=== PATIENT | male | born 1990 | race Caucasian/White ===

== ENCOUNTER 2024-07-14 10:03 | Emergency (ER) | payer OTHER, SELFPAY ==
--- NOTE | ~2024-07-14 | CT_ITS ---
EXAMINATION: CT ABDOMEN AND PELVIS WITHOUT CONTRAST CLINICAL INFORMATION: Lower abd discomfort and hernia bulge COMPARISON: None available. TECHNIQUE: Multidetector volumetric imaging was performed from the superior aspect of the liver through the pubic symphysis. Sagittal and coronal reformatted images were obtained on the technologist's workstation. This CT examination was performed using dose optimization techniques as appropriate, variously including the following: *Automated exposure control *Adjustment of mA and/or kV according to patient size (this includes techniques or standardized protocols for targeted exams where dose is matched to indication/reason for exam; i.e. extremities or head) *Use of iterative reconstruction technique DLP: 339 mGy-cm FINDINGS: LUNG BASES: The visualized lung bases are unremarkable. LIVER, GALLBLADDER, AND BILIARY TREE: The liver is normal in size, shape, and attenuation. No focal hepatic lesion or biliary ductal dilatation is present. The gallbladder is unremarkable with no evidence of radiopaque gallstones, gallbladder wall thickening, or obvious pericholecystic inflammatory changes. PANCREAS: Unremarkable. SPLEEN: Unremarkable. ADRENAL GLANDS: Unremarkable. KIDNEYS AND URETERS: There is a 1.0cm right lower pole layering calcification in the lower pole calyx. The kidneys are normal in size, shape, and attenuation. No hydronephrosis, hydroureter. No perinephric stranding. BLADDER: Unremarkable. GASTROINTESTINAL TRACT: The small and large bowel are unremarkable. The appendix is unremarkable. ABDOMINAL WALL: No significant hernia is appreciated. LYMPH NODES: Normal. VASCULAR: Unremarkable. PELVIC VISCERA: Unremarkable. OSSEOUS STRUCTURES: Unremarkable. CT/CT abdomen pelvis wo IV con IMPRESSION: 1. No significant hernia is appreciated. 2. 1.0 cm right lower pole layering calcification in the lower pole calyx. Fleischner guidelines were followed. Electronically signed by: Shanta Whitehead MD 07/14/2024 01:56 PM EDT
[2024-07-14 10:19] VITALS: BP 141/75; PULSE 66; RESP 16; TEMP 36.9; O2SAT 100; BMI 21.0
--- NOTE | 2024-07-14 13:57 | ED_ITS ---
HPI - General Adult General Chief complaint: General Medical Stated complaint: pelvis pain Time Seen by Provider: 07/14/24 13:36 Source: patient Mode of arrival: ambulatory Limitations: no limitations History of Present Illness ED Provider: Yaya CEVALLOS HPI narrative: This is a 34-year-old male presenting with concerns that he feels a small bulge on his suprapubic region/inguinal region intermittently particularly when he is working out. He reports he feels the bulge she pushes it in and it goes back in. It is not associated pain. No abdominal pain, nausea, vomiting, fevers, chills, headache, vision changes, dizziness, weakness, chest pain or shortness of breath. Related Data Allergies Allergy/AdvReac Type Severity Reaction Status Date / Time No Known Allergies Allergy Unverified 07/14/24 10:21 Review of Systems Review of Systems: Yes all other systems are reviewed and are negative [facility] Past Medical History Attestation statement: The following information was validated with the patient. Source: old records reviewed and nursing notes reviewed Social History Social History Advance Directives: No Advance Directives Information Provided: Yes Do you have a plan to hurt others: No Plan Physical Exam ED Vital Signs: Vital Signs - 24 hr 07/14/24 10:19 Temperature 98.5 F Pulse Rate 66 Respiratory Rate 16 Blood Pressure 141/75 H Pulse Oximetry 100 Oxygen Delivery Method Room Air BMI result Body Mass Index 21.0 Vital signs stable Appearance: Alert.? Oriented X3.? No acute distress.? Head: Normocephalic, atraumatic, no step-offs or deformities Eyes: Pupils equal, round and reactive to light. Neck: Normal inspection.? Neck supple.? CVS: Normal heart rate and rhythm.? Pulses normal.? Respiratory: No respiratory distress.? Breath sounds normal.? Abdomen: Soft and nontender.? small indirect inguinal hernia palpated and easily reduced at the bedside. No pain Skin: Skin warm and dry.? Normal skin color.? Normal skin turgor.? Extremities: No lower extremity edema.? No calf ttp. 5/5 strength to bilateral upper and lower extremities Neuro: Oriented X 3.? No motor deficit.? No sensory deficit. CN 2-12 intact Course Reevaluation(s) Reevaluation #1: Patient will be discharged with general surgery follow-up. Educated patient on diagnosis and treatment plan, answered all question, patient verbalizes un derstanding. At this time patient will be discharged home, advised to return with new or worsening symptoms. Educated on worrisome signs and symptoms and when to return. At this time I feel comfortable discharge home. Time: 14:31 Medical Decision Making Medical Decision Making MDM Narrative: 34-year-old male presents with concerns that he may have hernia felt a small lump in his lower abdomen reports he pushes it in intermittently. Physical exam significant for small indirect inguinal hernia palpated and easily reduced at the bedside. No pain History and physical exam concerning for reducible hernia. Unlikely ischemic bowel, incarcerated hernia. No signs of acute abdomen, appendicitis, cholecystitis, diverticulitis, pancreatitis Plan- imaging Differential Diagnosis Differential Diagnoses: The differential diagnosis associated with the presentation includes History and physical exam concerning for reducible hernia. Unlikely ischemic bowel, incarcerated hernia. No signs of acute abdomen, appendicitis, cholecystitis, diverticulitis, pancreatitis Admission/Observation Consideration of admission/observation: Escalation of care including admission/observation considered Independent Interpretation I performed an independent interpretation of an: CT Scan (CT/CT abdomen pelvis wo IV con IMPRESSION: 1. No significant hernia is appreciated. 2. 1.0 cm right lower pole layering calcification in the lower pole calyx. Fleischner guidelines were followed.) Radiology Impression Discussion of test interpretation with radiology: I have reviewed the radiologist's reading. Discharge Plan Discharge Clinical Impression: Inguinal hernia Patient Disposition: Home, Self-Care Instructions: Inguinal Hernia (ED) Additional Instructions: Take your medications as prescribed. If you were prescribed antibiotics today, it is important that you take your medication to their entirety, do not skip any doses, do not finish them early. Follow-up with your primary care provider this week. Return to the emergency department with new or worsening symptoms. Such as fevers, chills, chest pain, shortness of breath, nausea, vomiting, dizziness, headache, vision changes, lethargy In case of emergency call 911 Follow-up with general surgery if it continues to bother you CT/CT abdomen pelvis wo IV con IMPRESSION: 1. No significant hernia is appreciated. 2. 1.0 cm right lower pole layering calcification in the lower pole calyx. Fleischner guidelines were followed. [place] [facility] [place]Provider Group] - 2 days Physician,None [Primary Care Provider] - 2 days Stand Alone Forms: Work/School Release Print Language: Andorran
[2024-07-14 14:33] VITALS: BP 126/68; PULSE 68; RESP 16; TEMP 37.2; O2SAT 96
[2024-07-14 14:51] VITALS: BP 126/68; PULSE 68; RESP 16; TEMP 37.2; O2SAT 96
== END 2024-07-14 14:52 | disposition home or self-care (01) ==
PROVIDERS: Emergency Provider Emergency Medicine
DX: K40.90 Unilateral inguinal hernia, without obstruction or gangrene, not specified as recurrent (principal); R10.2 Pelvic and perineal pain
CPT/HCPCS: 74176; 99283; 99284

== ENCOUNTER 2024-07-20 07:50 | Outpatient (AMB) | payer OTHER, SELFPAY ==
--- NOTE | 2024-07-20 07:59 | MHC.OFFVIS ---
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 He has had a 3 to four-month history of left groin swelling and discomfort. He is very active and does extensive workouts and he thinks that is what precipitated his left inguinal hernia. Patient otherwise tolerating a diet, has regular bowel habits. He has no other GI issues or complaints. Chart was reviewed and patient evaluated [facility] Family History (Updated 07/20/24 @ 08:04 by Alma Delia Flanagan) Mother Breast CA HTN (hypertension) Social History (Updated 07/20/24 @ 08:00 by Alma Delia Flanagan) Household Members: Family Alcohol intake: never Use of substances other than those prescribed or required for medical reasons: Yes Substance Use Type: Marijuana Physical Exam Vital Signs: Last Vital Signs Pulse 61 07/20/24 08:04 BP 141/74 H 07/20/24 08:04 BMI result Body Mass Index 21.1 Const Other: Well-developed male. Chest Other: Chest breath sounds bilaterally, HS 1 in 2 GI Other: Patient was examined both supine and standing with Valsalva. Abdomen is soft, scaphoid, benign. Right groin negative. Genitalia within normal limits. Very large reducible left inguinal hernia. Assessment & Plan Assessment & Plan (1) Left inguinal hernia: Code(s): K40.90 - Unilateral inguinal hernia, without obstruction or gangrene, not specified as recurrent Category: Surgical Plan As noted above, patient would like to have this repaired. Risks, benefits, alternatives of open left inguinal hernia repair with mesh were reviewed the patient and included but not limited to bleeding, infection, recurrence, numbness, pain, scarring the patient wished to proceed. All questions answered. Arrangements will be made for this. Coding Level of Care Code New Pt Level 5 (36239) Diagnoses Left inguinal hernia K40.90
[2024-07-20 08:04] VITALS: BP 141/74; PULSE 61; BMI 21.1
== END 2024-07-20 08:16 | disposition home or self-care (01) ==
PROVIDERS: PCP Internal Medicine; Visit Provider Surgery
DX: K40.90 Unilateral inguinal hernia, without obstruction or gangrene, not specified as recurrent (principal)
CPT/HCPCS: 99204

== ENCOUNTER → 2024-07-20 07:50 | Outpatient (BNVA) | payer OTHER, SELFPAY | PROVIDERS: PCP Internal Medicine; Visit Provider Surgery ==

== ENCOUNTER 2024-08-01 08:10 | Outpatient (REF) | payer OTHER, SELFPAY ==
[2024-08-01 10:13] LABS: Hematocrit 38.9 % (42.0-52.0); Mean Corpuscular HGB Conc 33.4 g/dl (31.0-36.0); Mean Corpuscular Hemoglobin 26.9 pg (27.0-33.0); Mean Corpuscular Volume 80.4 fL (80.0-98.0); Mean Platelet Volume 10.1 fL (9.4-12.4); Platelet Count 249 X10*3/uL (160-400); Red Blood Count 4.84 X10*6/uL (4.60-5.80); Red Cell Distribution Width 13.6 % (11.0-16.0); White Blood Count 11.8 X10*3/uL (4.8-10.8)
[2024-08-01 11:00] LABS: Alanine Aminotransferase 21 U/L (0-40); Albumin Level 4.7 g/dL (3.5-5.0); Alkaline Phosphatase 62 U/L (39-117); Anion Gap 11 (12-20); Aspartate Amino Transferase 18 U/L (5-37); Bilirubin Direct < 0.2 mg/dL (0.0-0.5); Bilirubin Total 0.2 mg/dL (0.0-1.0); Blood Urea Nitrogen 9 mg/dL (9-16); Calcium 9.7 mg/dL (8.4-10.2); Carbon Dioxide 27 mmol/L (22-29); Chloride 107 mmol/L (96-108); Cholesterol 154 mg/dL (<200); Estimated Glomerular Filt Rate > 60; Glucose Random 108 mg/dL (60-115); HDL Cholesterol 40 mg/dL (>40); LDL Cholesterol Calculated 104 mg/dL (<100); Potassium 3.9 mmol/L (3.3-5.1); Sodium 141 mmol/L (135-145); Total Protein 7.7 g/dL (6.5-8.0); Triglycerides 51 mg/dL (<150)
[2024-08-01 11:06] LABS: Appearance Urine Clear; Color Urine Yellow; Glucose Urine UA Negative (Negative); Leukocyte Esterase Urine Negative (Negative); Nitrite Urine Negative (Negative); PH 6.5 (5.0-9.0); Specific Gravity - Urine 1.015 (1.005-1.025); Urine Blood Negative (Negative); Urine Ketones Negative (Negative); Urine Protein Negative (Neg-Trace)
[2024-08-01 11:22] LABS: Thyroid Stimulating Hormone 0.55 uIU/mL (0.32-4.0)
== END 2024-08-01 08:11 | disposition home or self-care (01) ==
LOC: HO.LAB 08:10
PROVIDERS: PCP Internal Medicine; Visit Provider Internal Medicine
DX: E78.00 Pure hypercholesterolemia, unspecified (principal); K40.90 Unilateral inguinal hernia, without obstruction or gangrene, not specified as recurrent; F12.90 Cannabis use, unspecified, uncomplicated
CPT/HCPCS: 36415; 80048; 80061; 80076; 81003; 84443; 85027; 96127; 99202

== ENCOUNTER 2024-08-01 08:10 | Outpatient (AMB) | payer OTHER, SELFPAY ==
--- NOTE | 2024-08-01 08:30 | A.OFFPC_ITS ---
Vital Signs 08/01/24 08:32 Height 5 ft 7.5 in Weight 134 lb 4 oz BMI 20.7 BP 120/66 Blood Pressure Location Lt brachial Position Sitting Pulse 85 Pulse Source Pulse Oximeter Pulse Oximetry (%) 99 Oxygen Delivery Method Room Air Intake Visit Reasons: Establish care- Hernia Repair on 08/16 Intake Note: Patient is a new patient here to establish care for Hernia. Transferring care from unknown. Medical records have not been requested and have not received. Pt has an up coming surgery on 08/12 with ([facility] [place] short stay). Resource Management Planner Required: No Floor Covering Layer: Not Required per policy Accompanied by: Self / Same As Patient Allergies No Known Allergies Allergy (Verified 08/01/24 09:03) Medication List - Last Reconciled 08/01/24 by Jaren Estrella MD No Known Home Meds Tobacco use date assessed: 08/01/24 Dental Screening Dental Screen Date: 08/01/24 Did you have a dental visit in the last 12 months?: Yes Did you have a dental problem in the last 6 months where you did not have access to dental care?: No Was dental information given to patient?: Patient has dentist HPI Establish care- Hernia Repair on 08/16 HPI Details 34-year-old male presents to the office to establish his care. Patient was recently seen in the emergency room for a lump in his lower abdomen. He was diagnosed to have inguinal hernia. A CT scan of the abdomen was unremarkable. Patient has seen a general surgeon and surgery has been scheduled for August 12. Patient otherwise is in good health. Currently not on any medications. No significant past medical history. He has not been working for a year. Patient smokes marijuana regularly. Denies any tobacco or alcohol use. He lives with his fiancee and daughter. [facility] Medical History Cannabis use disorder Surgical History Left inguinal hernia No pertinent past surgical history Family History Mother Breast CA HTN (hypertension) Social History Household Members: Family Housing: House Alcohol intake: never Patient Tobacco Use Status: Never used Tobacco e-Cigarette/Vaping Use: Never Used Second Hand Smoke Exposure: No Substance Use Type: Marijuana Substance Use Frequency: Daily service: No Current occupational status: unemployed Cognitive needs: No Hearing needs: No Vision needs: Yes (Contact lens) Questionnaire PHQ-9 Over the last 2 weeks, how often have you been bothered by any of the following problems? 1. Little interest or pleasure in doing things: not at all 2. Feeling down, depressed, or hopeless: not at all 3. Trouble falling or staying asleep, or sleeping too much: not at all 4. Feeling tired or having little energy: not at all 5. Poor appetite or overeating: not at all 6. Feeling bad about yourself - or that you are a failure or have let yourself or your family down: not at all 7. Trouble concentrating on things, such as reading the newspaper or watching television: not at all 8. Moving or speaking so slowly that other people could have noticed. Or the opposite - being so fidgety or restless that you have been moving around a lot more than usual: not at all 9. Thoughts that you would be better off or of hurting yourself in some way: not at all Total score: 0 Depression Screening Interpretation: Negative Depression Screening Done: Yes Source: Developed by Drs. Ulises Hughes, Marianna Patiño, Ramakrishna Cisneros and colleagues, with an educational vida from [employer]. Thrive Questionnaire Date Thrive assessed: 07/31/24 I am a: Patient What is your living situation today?: I choose not to answer this question Within the past 12 months, did the food you bought not last and you didn't have the money to get more?: I choose not to answer this question Within the past 12 months, did you worry whether your food would run out before you got money to buy more?: I choose not to answer this question Do you have trouble paying for medicines?: I choose not to answer this question Do you have trouble getting transportation to medical appointments?: No Do you have trouble paying your heating and electricity bill?: I choose not to answer this question Do you have trouble taking care of your child, family member or friend?: No Do you have trouble with day-to-day activities such as bathing, preparing meals, shopping, managing finances, etc.?: No Are you currently unemployed and looking for a job?: I choose not to answer this question Are you interested in more education?: No Please select the resources that you would like help with: None Currently or been in a relationship where the following occur: I choose not to answer THRIVE Score: 0 AUDIT C Alcohol Use Questionnaire (AUDIT-C) 1. How often do you have a drink containing alcohol?: Never 2. How many drinks containing alcohol do you have on a typical day when you are drinking?: 1 or 2 3. How often do you have six or more drinks on one occasion?: Never Total Score: 0 LUISANA-7 AMB Questionnaire LUISANA-7 Date LUISANA - 7 assessed: 08/01/24 Feeling nervous, anxious, or on edge: 0 = Not at all Not being able to stop or control worryin = Not at all Worrying too much about different things: 0 = Not at all Trouble relaxin = Not at all Being so restless that it is hard to sit still: 0 = Not at all Becoming easily annoyed or irritable: 0 = Not at all Feeling afraid as if something awful might happen: 0 = Not at all Total LUISANA-7 score (0-4 normal; 5-9 mild; 10-14 moderate; 15-21 severe): 0 Source: Developed by Drs. Ulises Hughes, Marianna Patiño, Ramakrishna Cisneros and colleagues, with an educational vida from [employer]. Physical exam (Primary Care) Vital Signs: Last Vital Signs Pulse 85 08/01/24 08:32 BP 120/66 08/01/24 08:32 Pulse Ox 99 08/01/24 08:32 Oxygen Delivery Method Room Air 08/01/24 08:32 Care Plan Goal for BP management: Blood pressure is in range. BMI result Body Mass Index 20.7 Tobacco/Smoking Status: Tobacco use Status Tobacco use date assessed 08/01/24 08/01/24 08:42 Patient Tobacco Use Status Never used Tobacco 08/01/24 08:42 e-Cigarette/Vaping Use Never Used 08/01/24 08:42 PHQ-9: PHQ-9 Score PHQ-9: Total score 0 08/01/24 08:42 Depression Screening Interpretation: Negative Thrive Assessment: Date of Thrive Assessment Date Thrive assessed 07/31/24 08/01/24 08:42 Currently or been in a relationship where the following occur: I choose not to answer Const General: cooperative and healthy appearing Nutritional Appearance: well nourished Orientation/consciousness: patient oriented x3 Limitations: no limitations HENMT Head: Yes normal to inspection Eyes General: appearance normal, both eyes and all related structures Neck Neck: Yes normal visual inspection Chest Chest palpation & inspection: normal palpation of entire chest wall Resp Effort & Inspection: normal respiratory effort Neuro General: patient oriented x3 Assessment and Plan Assessment & Plan (1) Borderline hypercholesterolemia: Code(s): E78.00 - Pure hypercholesterolemia, unspecified Plan: Blood work has been ordered will call with the results. (2) Left inguinal hernia: Code(s): K40.90 - Unilateral inguinal hernia, without obstruction or gangrene, not specified as recurrent Plan: Patient, independently has made his own arrangements to get surgery done. (3) Cannabis use disorder: Code(s): F12.90 - Cannabis use, unspecified, uncomplicated Plan: Patient is not interested at this time to discuss cessation. Orders: Orders Complete Blood Count no Diff Today E78.00 - Pure hypercholesterolemia, unspecified Basic Metabolic Panel Today E78.00 - Pure hypercholesterolemia, unspecified Lipid Panel Today E78.00 - Pure hypercholesterolemia, unspecified Thyroid Stimulating Hormone Today E78.00 - Pure hypercholesterolemia, unspecified Liver Panel Today E78.00 - Pure hypercholesterolemia, unspecified UA and rflx microscopic Today E78.00 - Pure hypercholesterolemia, unspecified Coding Level of Care Code New Pt Level 4 (78347) Diagnoses Borderline hypercholesterolemia E78.00 Left inguinal hernia K40.90 Cannabis use disorder F12.90
[2024-08-01 08:32] VITALS: BP 120/66; PULSE 85; O2SAT 99; BMI 20.7
== END 2024-08-01 08:53 | disposition home or self-care (01) ==
PROVIDERS: Visit Provider Internal Medicine
DX: E78.00 Pure hypercholesterolemia, unspecified (principal); K40.90 Unilateral inguinal hernia, without obstruction or gangrene, not specified as recurrent; F12.90 Cannabis use, unspecified, uncomplicated

== ENCOUNTER 2024-08-12 10:40 | Day surgery (SDC) | payer OTHER, SELFPAY ==
[2024-08-10 09:42] VITALS: BMI 21.1
--- NOTE | 2024-08-11 11:10 | MHC.SHP ---
Pre-Procedural Eval Section A - 24 Hr Update-Section A only Date of Service: 08/12/24 The patient is an INPATIENT: No Changes since office visit: No Cold of Flu in the past 2 weeks, No New Medical Problems, No Changes in Medication and No Patient answered all questions Section B - Complete if H&P > 30 days Chief Complaint: Unilateral inguinal hernia, without obstruction or Allergies: Allergies Allergy/AdvReac Type Severity Reaction Status Date / Time No Known Allergies Allergy Verified 08/01/24 09:03 Review of Systems Sugical H&P ROS: Negative: Constitution, Cardiovascular, Respiratory, Neurological, Psychiatric, Hem-Onc, Allergic/Immunologic, Gastrointestinal, Genitourinary, Musculoskeletal, Integumentary, Endocrine and Eyes/Ears/Nose/Throat Exam Surgical H&P Exam: Normal: HEENT, Normal: Heart, Normal: Lungs, Normal: Extremities, Normal: Abdomen, Normal: Skin and Normal: Neurological Plan I have reviewed the history and physical and performed a pertinent physical examination on my patient. No changes have occurred unless specified. Time Spent With Patient Time: Total time managing care of this patient today ____ minutes.
[2024-08-12] VITALS (7 sets, daily range): BP systolic 90–143; BP diastolic 40–85; PULSE 73–100; RESP 16–21; TEMP 36.6–37.2; O2SAT 96–99
[2024-08-12] MEDS: Lactated Ringers 1,000 ML 100 ML IVCONT (11:05)
--- NOTE | 2024-08-12 12:00 | P.CONAN_ITS ---
Documented by User: Amber Mcmanus NP 08/10/24 14:37 HPI - Anesthesia Eval Consult details Narrative: 34yo M for Left Hernia Inguinal Reducible PMFSH Active Problems Active Problems: All Active Problems Cannabis use disorder (Acute) Left inguinal hernia (Acute) Past Medical History Medical History Cannabis use disorder Family History Family History Mother Breast CA HTN (hypertension) Surgical History Surgical History Left inguinal hernia No pertinent past surgical history Social History Social History Household Members: Family Housing: House Alcohol intake: never Patient Tobacco Use Status: Never used Tobacco e-Cigarette/Vaping Use: Never Used Second Hand Smoke Exposure: No Use of substances other than those prescribed or required for medical reasons: Yes Substance Use Type: Marijuana Substance Use Type Other:: Smoking Substance Use Frequency: Daily Have you been hit, kicked, punched, or otherwise hurt by someone within the past year? If so, by whom?: No Are you DNR?: No Advance Directives: No Advance Directives Information Provided: Yes Recently lost weight without trying: No Nutrition Risks: No Nutritional Risk service: No Current occupational status: unemployed Cognitive needs: No Hearing needs: No Vision needs: Yes (Contact lens) Meds Allergies Allergy/AdvReac Type Severity Reaction Status Date / Time No Known Allergies Allergy Verified 08/01/24 09:03 Exam Height,Weight and Vital Signs: Height 5 ft 7 in Weight 61.235 kg Pertinent Lab Results Pertinent Lab Results: Laboratory Tests 08/01/24 09:37 WBC 11.8 H Hgb 13.0 L Hct 38.9 L Plt Count 249 Sodium 141 Potassium 3.9 Chloride 107 Carbon Dioxide 27 BUN 9 Creatinine 0.76 Assessment and Plan Assessment Anesthesia Assessment: Chart Reviewed Documented by User: Florence Ruiz DO 08/12/24 12:14 HPI - Anesthesia Eval Consult details Narrative: 34yo M for Left Hernia Inguinal Reducible. Smokes marijuana daily. [facility] Past Medical History Medical History Cannabis use disorder Family History Family History Mother Breast CA HTN (hypertension) Family history of problems with anesthesia: No Surgical History Surgical History Left inguinal hernia No pertinent past surgical history History of Problems with Anesthesia: No Social History Social History Household Members: Family Housing: House Alcohol intake: never Patient Tobacco Use Status: Never used Tobacco e-Cigarette/Vaping Use: Never Used Second Hand Smoke Exposure: No Use of substances other than those prescribed or required for medical reasons: Yes Substance Use Type: Marijuana Substance Use Type Other:: Smoking Substance Use Frequency: Daily Have you been hit, kicked, punched, or otherwise hurt by someone within the past year? If so, by whom?: No Are you DNR?: No Advance Directives: No Advance Directives Information Provided: Yes Recently lost weight without trying: No Nutrition Risks: No Nutritional Risk service: No Current occupational status: unemployed Cognitive needs: No Hearing needs: No Vision needs: Yes (Contact lens) Meds Allergies Allergy/AdvReac Type Severity Reaction Status Date / Time No Known Allergies Allergy Verified 08/01/24 09:03 Exam Exam Date and Time: 08/12/24 1200 Height,Weight and Vital Signs: Height 5 ft 7 in Weight 61.235 kg Vital Signs Temperature 97.8 F 08/12/24 11:04 Pulse Rate 77 08/12/24 11:04 Respiratory Rate 16 08/12/24 11:04 Blood Pressure 143/79 H 08/12/24 11:04 Pulse Oximetry 99 08/12/24 11:04 Oxygen Delivery Method Room Air 08/12/24 11:04 Temperature 97.8 F 08/12/24 11:04 Pulse Rate 77 08/12/24 11:04 Respiratory Rate 16 08/12/24 11:04 Blood Pressure 143/79 H 08/12/24 11:04 Pulse Oximetry 99 08/12/24 11:04 Oxygen Delivery Method Room Air 08/12/24 11:04 Airway Mallampati Class: I TM Dist: >3cm Neck ROM: Full Loose/Missing/Broken Teeth: Yes (broken molar right upper jaw) Heart: S1S2 Lungs: CTAB Assessment and Plan Assessment Anesthesia Assessment: Anesthesia Plan Discussed and Chart Reviewed Final Anesthetic Review Family History of Problems with Anesthesia: No History of Problems with Anesthesia: No NPO: Yes ASA Class: II Final Preanesthetic Review: No Changes in Pt Med Stat, Meds/Allgs Chart Reviewed, Consent Obtained/Reviewed and Anes Risks/Benef Reviewed Patient Risk: Low Procedure Risk: Low Anesthetic Plan Anesthetic Plan: MAC: and Agree w/ Assess. and Plan Disposition: Standard PACU
--- NOTE | 2024-08-12 13:48 | P.OP_ITS ---
Operative Note Operative Note Date of Service: 08/12/24 Narrative: Preoperative diagnosis: [] Symptomatic left inguinal hernia Postop diagnosis: [] The same Procedure [] open left inguinal herniorrhaphy with Bard mesh Surgeon: [] [employer] Information Clerk: [] Flores Type of Anesthesia: [] MAC Indication for surgery: [] Very large indirect left inguinal hernia. No direct hernia demonstrated. Findings: [] Patient was brought to the operating room, placed on operative table in supine position, after an adequate level of MAC anesthesia was induced, the left groin was prepped and draped in usual sterile fashion. Using a very small left para inguinal incision, this carried down through skin, subcutaneous tissue, Roma's fascia. External oblique fibers were opened their direction with care to isolate and preserve the ilioinguinal nerve throughout the procedure. Spermatic cord was identified and retracted from the field. As noted above no direct hernia was demonstrated. A very large indirect hernia sac was identified, from the cord, and reduced. A Bard plug was placed in the indirect defect and sutured inferiorly to the inguinal ligament, and superiorly to the transversalis fascia using interrupted 0 Ethibond suture. Grasped also covered the entire inguinal floor. Wound was irrigated, secured hemostasis, and closed in the following manner; external oblique fibers were closed using running 2-0 Vicryl suture. Roma's fascia was reapproximated using interrupted 3-0 Vicryl suture. Interrupted inverted deep dermal 3-0 Vicryl sutures followed by running subcuticular 4-0 Vicryl sutures were placed. Steri-Strips and sterile dressings were applied. Wound was infiltrated at the beginning at the end with 0.5% Marcaine/1% lidocaine in the wound directly and through ilioinguinal block. Sponge, needle, and instrument counts were reported correct. Patient tolerated the procedure well and emerged from anesthesia stable condition. Ipsilateral testicle was intrascrotal at completion.
== END 2024-08-12 15:21 | disposition home or self-care (01) ==
PROVIDERS: Visit Provider Surgery
PROC: (CPT 49505; principal; 2024-08-12 13:10)
DX: K40.90 Unilateral inguinal hernia, without obstruction or gangrene, not specified as recurrent (principal)
CPT/HCPCS: 49505; C1781; J0690; J1596; J1885; J2003; J2250; J2704; J2795; J3010

== ENCOUNTER → 2024-08-12 10:40 | Outpatient (BNV) | payer OTHER, SELFPAY | PROVIDERS: Visit Provider Surgery | DX: K40.90 Unilateral inguinal hernia, without obstruction or gangrene, not specified as recurrent (principal) | CPT/HCPCS: 49505 ==

== ENCOUNTER 2024-08-23 13:20 | Outpatient (AMB) | payer OTHER, SELFPAY ==
--- NOTE | 2024-08-23 13:25 | A.OFFVIS_ITS ---
Intake Visit Reasons: S/P LIH w/mesh Intake Note: Patient here s/p left inguinal hernia on 08-12-2024. Reports incisions healing well. Patient c/o: no longer taking rx pain meds. 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 He is tolerating a diet. Having regular bowel habits. He has minimal incisional discomfort. He is increasing his activity level. FOR[facility]LY [facility], [facility] Medical History Cannabis use disorder Surgical History (Updated 08/23/24 @ 13:34 by Remy Dent MD) Left inguinal hernia (08/12/24) No pertinent past surgical history Family History Mother Breast CA HTN (hypertension) Social History Household Members: Family Housing: House Alcohol intake: never Patient Tobacco Use Status: Never used Tobacco e-Cigarette/Vaping Use: Never Used Second Hand Smoke Exposure: No Substance Use Type: Marijuana service: No Current occupational status: unemployed Cognitive needs: No Hearing needs: No Vision needs: Yes (Contact lens) Physical Exam GI Other: Abdomen is soft. Incision clean dry and intact healing very well Assessment & Plan Assessment & Plan (1) Status post inguinal hernia repair: Code(s): Z98.890 - Other specified postprocedural states; Z87.19 - Personal history of other diseases of the digestive system Category: Medical Plan Patient was been given local instructions including avoiding strenuous activities next few weeks time and will otherwise follow-up p.r.n.. All questions answered Coding Level of Care Code Global (86434) Diagnoses Status post inguinal hernia repair Z98.890; Z87.19
== END 2024-08-23 13:34 | disposition home or self-care (01) ==
LOC: HO.HGS 13:20
PROVIDERS: PCP Internal Medicine; Visit Provider Surgery
DX: Z98.890 Other specified postprocedural states (principal); Z87.19 Personal history of other diseases of the digestive system
CPT/HCPCS: 99024

== ENCOUNTER → 2024-08-23 13:20 | Outpatient (BNVA) | payer OTHER, SELFPAY | PROVIDERS: PCP Internal Medicine; Visit Provider Surgery | DX: Z98.890 Other specified postprocedural states (principal); Z87.19 Personal history of other diseases of the digestive system | CPT/HCPCS: 99212 ==

== ENCOUNTER 2024-09-01 15:31 | Outpatient (AMB) | payer OTHER, SELFPAY ==
--- NOTE | 2024-09-01 15:41 | MHC.PC.OV ---
Vital Signs 09/01/24 15:44 Height 5 ft 7 in Weight 128 lb BMI 20.0 BP 100/70 Blood Pressure Location Lt brachial Position Sitting Pulse 81 Pulse Source Pulse Oximeter Pulse Oximetry (%) 99 Oxygen Delivery Method Room Air Intake Visit Reasons: follow up Intake Note: Patient is here to follow up on Post Inguinal Hernia. Pt decline flu shot today. 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 Since the last office visit patient underwent inguinal hernia repair. Patient tolerated the procedure well and is recovering. He has not started working yet. Able to do his activities of daily living. Reports no symptoms of pain in the abdomen area. [facility]LY [facility] Medical History Cannabis use disorder Surgical History Left inguinal hernia (08/12/24) No pertinent past surgical history Family History Mother Breast CA HTN (hypertension) Social History (Updated 09/01/24 @ 15:50 by ALESSANDRO Duke) Household Members: Family Housing: House Alcohol intake: never Patient Tobacco Use Status: Current everyday Tobacco user e-Cigarette/Vaping Use: Never Used Second Hand Smoke Exposure: No Substance Use Type: Marijuana Substance Use Frequency: Daily service: No Current occupational status: unemployed Cognitive needs: No Hearing needs: No Vision needs: Yes (Contact lens) Questionnaire Thrive Questionnaire Date Thrive assessed: 07/31/24 I am a: Patient What is your living situation today?: I choose not to answer this question Within the past 12 months, did the food you bought not last and you didn't have the money to get more?: I choose not to answer this question Within the past 12 months, did you worry whether your food would run out before you got money to buy more?: I choose not to answer this question Do you have trouble paying for medicines?: I choose not to answer this question Do you have trouble getting transportation to medical appointments?: No Do you have trouble paying your heating and electricity bill?: I choose not to answer this question Do you have trouble taking care of your child, family member or friend?: No Do you have trouble with day-to-day activities such as bathing, preparing meals, shopping, managing finances, etc.?: No Are you currently unemployed and looking for a job?: I choose not to answer this question Are you interested in more education?: No Please select the resources that you would like help with: None Currently or been in a relationship where the following occur: I choose not to answer THRIVE Score: 0 LUISANA-7 AMB Questionnaire LUISANA-7 Date LUISANA - 7 assessed: 08/01/24 Source: Developed by Drs. Ulises Hughes, Marianna Patiño, Ramakrishna Cisneros and colleagues, with an educational vida from [employer]. Physical exam (Primary Care) Vital Signs: Last Vital Signs Pulse 81 09/01/24 15:44 BP 100/70 09/01/24 15:44 Pulse Ox 99 09/01/24 15:44 Oxygen Delivery Method Room Air 09/01/24 15:44 BMI result Body Mass Index 20.0 Tobacco/Smoking Status: Tobacco use Status Tobacco use date assessed 09/01/24 09/01/24 15:48 Patient Tobacco Use Status Current everyday Tobacco 09/01/24 15:52 e-Cigarette/Vaping Use Never Used 09/01/24 15:50 Thrive Assessment: Date of Thrive Assessment Date Thrive assessed 07/31/24 09/01/24 15:48 Currently or been in a relationship where the following occur: I choose not to answer Skin Other: Abdomen: Surgical site is healing well. Coding Level of Care Code Est Pt Level 3 (79454) Complex EM visit Add On G2211 Diagnoses Left inguinal hernia K40.90 Assessment & Plan Assessment & Plan (1) Left inguinal hernia: Onset Date: 08/12/24 Comment: Remy Ely Code(s): K40.90 - Unilateral inguinal hernia, without obstruction or gangrene, not specified as recurrent Category: Surgical Plan: Wound is healing. Reassurance.
[2024-09-01 15:44] VITALS: BP 100/70; PULSE 81; O2SAT 99
== END 2024-09-01 16:05 | disposition home or self-care (01) ==
PROVIDERS: PCP Internal Medicine; Visit Provider Internal Medicine
DX: K40.90 Unilateral inguinal hernia, without obstruction or gangrene, not specified as recurrent (principal)

== ENCOUNTER → 2024-09-01 15:31 | Outpatient (BNVA) | payer OTHER, SELFPAY | PROVIDERS: PCP Internal Medicine; Visit Provider Internal Medicine | DX: K40.90 Unilateral inguinal hernia, without obstruction or gangrene, not specified as recurrent (principal) | CPT/HCPCS: 99212 ==